=== PATIENT | male | born 2000 | race Caucasian/White ===

== ENCOUNTER 2020-03-10 00:30 | Emergency (ER) | payer OTHER ==
[~2020-03-10] VITALS: Ht 177.8 cm; Wt 68.2 kg
[2020-03-10 00:30] VITALS: TEMP 98.7
[2020-03-10 01:24] LABS: CREATININE, serum 0.94 (0.66-1.25)
[2020-03-10 07:30] VITALS: BP 104/60; PULSE 84
== END 2020-03-10 08:20 | disposition home or self-care (01) ==
LOC: COL.ER 00:30 → EDBD 00:44 → COL.ER 08:20
PROVIDERS: Emergency Medicine
DX: S06.0X0A Concussion without loss of consciousness, initial encounter (principal); S01.01XA Laceration without foreign body of scalp, initial encounter; R40.2410 Glasgow coma scale score 13-15, unspecified time; F10.129 Alcohol abuse with intoxication, unspecified; W01.198A Fall on same level from slipping, tripping and stumbling with subsequent striking against other object, initial encounter
CPT/HCPCS: J2405; J7030

== ENCOUNTER → 2020-03-20 | Outpatient (CLI) | payer OTHER ==
[2020-03-20 16:07] VITALS: BP 133/73; PULSE 74; TEMP 98.5
== END ==
LOC: COL.ER 15:58
DX: Z48.02 Encounter for removal of sutures (principal)